=== PATIENT | male | born 1995 | race Asian ===

== ENCOUNTER 2021-02-15 09:09 | Day surgery (SDC) | payer OTHER ==
[~2021-02-15] VITALS: Ht 182.9 cm; Wt 114.9 kg
--- NOTE | 2021-02-15 10:34 | NUR ---
02/15/21 1034 MEGAN ROLDAN TIMOUT FOR LEFT SHOULDER BLOCK AT BEDSIDE 1008 ANESTHESIOLOGIST ADMINISTERED VERSED AT BEDSIDE 1009 LIDOCAINE 1013 MEDICATION FOR BLOCK 1014 AND DONE AT 1017 PATIENT TOLERATED WELL BIOX 97% ROOM AIR HR 65
--- NOTE | 2021-02-15 11:52 | NUR ---
02/15/21 1152 Alaina Reyes PT NEEDING CHIN LIFT/JAW THRUST BY MD ARENAS UPON ARRIVAL TO PACU. FLUMAZENIL 0.2MG IV GIVEN BY MD ARENAS. PT AWAKENED WITHIN 30 SECONDS OF ADMINISTRATION.
== END 2021-02-15 13:05 | disposition home or self-care (01) ==
LOC: ORSCSDS 09:09
PROVIDERS: Orthopaedic Surgery
PROC: 0LS44ZZ Reposition Left Upper Arm Tendon, Percutaneous Endoscopic Approach (ICD-10-PCS; principal; 2021-02-15 10:30)
PROC: 0RQK4ZZ Repair Left Shoulder Joint, Percutaneous Endoscopic Approach (ICD-10-PCS; principal; 2021-02-15 10:30)
DX: S43.005A Unspecified dislocation of left shoulder joint, initial encounter (principal); M25.312 Other instability, left shoulder; E66.9 Obesity, unspecified; Z68.34 Body mass index [BMI] 34.0-34.9, adult
CPT/HCPCS: C1713; J0171; J0690; J2250; J2370; J2704; J3010; J7120